=== PATIENT | male | born 1990 | race Caucasian/White ===

== ENCOUNTER 2017-11-28 19:47 | Inpatient (IN) | payer OTHER, SELFPAY ==
[2017-11-28] MEDS ORDERED: Ondansetron HCl/PF 4 MG/2 ML Vial ONE (19:57)
[2017-11-28 20:26] LABS: #Basophils 0.1 thou/uL (0.0-0.2); #Eosinphils 0.4 thou/uL (0.0-0.7); #Lymphocytes 2.1 thou/uL (1.20-3.40); #Monocytes 0.7 thou/uL (0.11-0.59); #Neutrophils 3.4 thou/uL (1.40-6.50); %Basophils 1.7 % (0.0-1.0); %Eosinophils 5.3 % (0.0-10.0); %Lymphocytes 30.6 % (21.0-51.0); %Monocytes 11.1 % (0.0-10.0); %Neutrophils 51.3 % (42.0-75.0); Hemoglobin 13.2 g/dL (14.0-18.0); Mean Corpuscular HGB CONC 36.2 g/dL (32.0-36.0); Mean Corpuscular Hemoglobin 30.7 pg (27.0-31.0); Mean Corpuscular Volume 84.8 fL (78.0-98.0); Mean Platelet Volume 9.4 fL (7.4-10.4); Platelet Count 231 thou/uL (130-400); RBC Distribution Width 9.5 % (11.5-14.5); Red Blood Cell (RBC) Count 4.31 mill/uL (4.70-6.10); White Blood Cell (WBC) Count 6.7 thou/uL (4.8-10.8)
[2017-11-28 20:39] LABS: ALT (SGPT) 20 U/L (8-55); AST (SGOT) 19 U/L (5-34); Albumin 4.4 g/dL (3.5-5.0); Alkaline Phosphatase 92 U/L (40-150); Anion Gap 14 mmol/L (10-20); BUN (Urea Nitrogen) 7 mg/dL (8.9-20.6); Bilirubin, Total 0.8 mg/dL (0.2-1.2); Calc. Creatinine Clearance 0 mL/min (70-130); Calcium 9.4 mg/dL (7.8-10.44); Carbon Dioxide 21 mmol/L (22-29); Chloride 88 mmol/L (98-107); Estimated GFR-MDRD Greater than 90; Globulin 2.9 g/dL (2.4-3.5); Glucose 125 mg/dL (70-105); Potassium 3.3 mmol/L (3.5-5.1); Protein, Total 7.3 g/dL (6.0-8.3); Sodium 120 mmol/L (136-145); Troponin I Less than 0.010 ng/mL (< 0.028)
--- NOTE | 2017-11-28 20:58 | RAD ---
CHEST TWO VIEWS: HISTORY: Dyspnea. TECHNIQUE: PA and lateral views of the chest are obtained. FINDINGS: The lungs are well aerated. No evidence of active intrathoracic disease is seen. No evidence of eff usions, pneumonia, or pneumothorax is seen. IMPRESSION: Normal two views chest. POS: [facility]
[2017-11-28 22:09] LABS: Osmolality, Serum 249 mOsm/kg (280-295)
--- NOTE | 2017-11-28 22:09 | CT ---
CT BRAIN WITHOUT CONTRAST: HISTORY: Headache. TECHNIQUE: Noncontrast enhanced CT images of the brain obtained. FINDINGS: No evidence of intracranial masses, hemorrhages, strokes, or contusions seen. The ventricles are of normal size. IMPRESSION: Normal CT brain. POS: [facility]
[2017-11-28 22:31] LABS: Bilirubin Negative (Negative); Blood, Urine Negative (Negative); Clarity Clear (Clear); Glucose, Urine (Dipstick) Negative (Negative); Leukocyte Negative (Negative); Nitrite Negative (Negative); Protein, Urine (Dipstick) Negative (Neg-Trace); Urobilinogen 0.2 mg/dL (0.2-1.0)
[2017-11-28 22:33] LABS: Specific Gravity, Urine 1.002 (1.002-1.036)
[2017-11-28 23:34] VITALS: BMI 22.4
[2017-11-29 00:11] LABS: Anion Gap 14 mmol/L (10-20); BUN (Urea Nitrogen) 6 mg/dL (8.9-20.6); Calc. Creatinine Clearance 118 mL/min (70-130); Calcium 9.2 mg/dL (7.8-10.44); Carbon Dioxide 22 mmol/L (22-29); Chloride 95 mmol/L (98-107); Estimated GFR-MDRD Greater than 90; Glucose 112 mg/dL (70-105); Potassium 3.7 mmol/L (3.5-5.1); Sodium 127 mmol/L (136-145)
[2017-11-29 00:29] LABS: Amphetamine Detected (NotDetected); Barbiturates Screen Not Detected (NotDetected); Benzodiazepine Screen Not Detected (NotDetected); Cocaine Metabolite Screen Detected (NotDetected); Medtox Control Line Valid? VALID (VALID); Medtox Reader # READER 4; Methadone Not Detected (NotDetected); Methamphetamine Not Detected (NotDetected); Opiate Screen Not Detected (NotDetected); Oxycodone Screen Not Detected (NotDetected); Phencyclidine (PCP) Not Detected (NotDetected); THC/Cannabinoid Screen Detected (NotDetected); Tricyclic Screen Not Detected (NotDetected)
[2017-11-29] MEDS ORDERED: Acetaminophen 325 MG TAB PO PRN (00:59)
[2017-11-29] MEDS ORDERED: Ondansetron HCl/PF 4 MG/2 ML Vial IVP PRN (00:59)
[2017-11-29] MEDS ORDERED: Dextrose 5% in Water 1,000 ML IV SCH (01:00)
[2017-11-29] MEDS ORDERED: Sodium Chloride 0.45% 1,000 ML IV SCH (01:15)
[2017-11-29 06:46] LABS: Anion Gap 15 mmol/L (10-20); BUN (Urea Nitrogen) 5 mg/dL (8.9-20.6); Calc. Creatinine Clearance 115 mL/min (70-130); Calcium 9.8 mg/dL (7.8-10.44); Carbon Dioxide 21 mmol/L (22-29); Chloride 101 mmol/L (98-107); Estimated GFR-MDRD Greater than 90; Glucose 95 mg/dL (70-105); Potassium 3.9 mmol/L (3.5-5.1); Sodium 133 mmol/L (136-145)
[2017-11-29 06:57] LABS: #Eosinphils 0.5 thou/uL (0.0-0.7); #Lymphocytes 2.2 thou/uL (1.20-3.40); #Neutrophils 3.9 thou/uL (1.40-6.50); %Basophils 0.3 % (0.0-1.0); %Eosinophils 6.2 % (0.0-10.0); %Lymphocytes 29.4 % (21.0-51.0); %Monocytes 12.4 % (0.0-10.0); %Neutrophils 51.6 % (42.0-75.0); Hemoglobin 14.4 g/dL (14.0-18.0); Mean Corpuscular HGB CONC 33.3 g/dL (32.0-36.0); Mean Corpuscular Hemoglobin 29.9 pg (27.0-31.0); Mean Platelet Volume 8.4 fL (7.4-10.4); Platelet Count 259 thou/uL (130-400); Red Blood Cell (RBC) Count 4.82 mill/uL (4.70-6.10); White Blood Cell (WBC) Count 7.6 thou/uL (4.8-10.8)
[2017-11-29] MEDS ORDERED: Enoxaparin Sodium 40 MG/0.4 ML SYRINGE SC SCH (09:00)
[2017-11-29 09:28] LABS: Anion Gap 11 mmol/L (10-20); BUN (Urea Nitrogen) 5 mg/dL (8.9-20.6); Calc. Creatinine Clearance 117 mL/min (70-130); Calcium 9.4 mg/dL (7.8-10.44); Carbon Dioxide 23 mmol/L (22-29); Chloride 104 mmol/L (98-107); Estimated GFR-MDRD Greater than 90; Glucose 95 mg/dL (70-105); Potassium 4.1 mmol/L (3.5-5.1); Sodium 134 mmol/L (136-145)
--- NOTE | 2017-11-29 09:37 | CON ---
DATE OF CONSULTATION: 11/29/2017 RENAL MEDICINE HISTORY OF PRESENT ILLNESS: Mr. Delatorre is a 27-year-old white male who was admitted for hyponatrem ia - acute. Initially, he came today complaining of shortness of breath. On further evaluation, no evidence of CHI was found with this patient. He was found to have an incidental finding of serum sod ium of 120 on admission. He was placed on a simple free water restriction and the serum sodium spont aneously started correcting to 127. The issue was whether this patient may be correcting his hyponat remia quite rapidly. My bias is that this patient most likely has acute hyponatremia and I am not co ncerned about rapid correction per se. I do not think he has history of chronic hyponatremia. The p atient was telling me that a few days prior to admission he has been imbibing more free water thinkin g he was dehydrated. He also has significant alcohol intake. He tells me he takes about a six pack 3 times a week minimum. This may also have contributed to the hyponatremia. He is also on an NSAID, which he takes according to the patient 2 times a week which could also contribute to the hyponatrem ia. This morning, he is feeling better. His serum sodium is much improved to 133. He is complainin g of being hungry. REVIEW OF SYSTEMS: No chest pain, no shortness of breath, no nausea, no vomiting, no diarrhea, no co nstipation, no productive cough, no fever or chills, no diarrhea. Appetite is fair. Energy level is fair. No hematochezia, no melena, no dysuria, no urinary frequency. MEDICATIONS: Currently on half normal saline 100 mL per hour, Lovenox 40 mg subcu daily and Tylenol p.r.n. PAST MEDICAL HISTORY: No significant medical problems. PAST SURGICAL HISTORY: No significant surgeries. ALLERGIES: None. TRAUMA: None. IMMUNIZATIONS: Not up to date. HOSPITALIZATIONS: Please see past medical history. SOCIAL HISTORY: Patient is , 4 children, lives in [place]. He works as a part-time freight loader. S mokes 1 pack a day for the last 8 years. Alcohol, six pack 3 times a week. P.r.n. intake of NSAIDs. No IV drug abuse. No blood transfusion. FAMILY HISTORY: No family history of ESRD. PHYSICAL EXAMINATION: VITAL SIGNS: Blood pressure 135/95, heart rate 95, respiratory rate 20, temperature 98.7, pulse ox 9 7% room air. GENERAL: Awake, alert, comfortable, not in distress. SKIN: Adequate turgor. HEENT: He has pinkish conjunctivae, anicteric sclerae. NECK: No neck mass, no carotid bruits, no JVD. CHEST: No deformities. LUNGS: Clear breath sounds, no wheezing, no crackles. HEART: Normal sinus rhythm. No murmur, no gallops, no rubs. ABDOMEN: Globular, soft, nontender, no masses. EXTREMITIES: No edema, no deformities. NEUROLOGIC: Awake and oriented to 3 spheres. Moving all extremities. No tremors, no asterixis, no ataxia. IMAGING DATA: 1. Chest x-ray on 11/28/[address] scan of the brain, no acute intracranial abnormality. LABORATORY DATA: On 11/29/2017; sodium 133, potassium 3.9, chloride 101, carbon dioxide 21, BUN 5, c reatinine 0.86, glucose 95, calcium 9.8. On 11/28/2017; 23:44 - serum sodium 127. On 11/28/2017, 20:05, serum sodium 120. Urinalysis; specific gravity, 10.02, no red cells, no white cells, no protein. ASSESSMENT AND PLAN: Hyponatremia - consider a primary polydipsia. The patient was advised on a kelly e water intake. We will try to control his intake of water. In addition, I counseled him on the alc ohol intake as well on the NSAID intake. Please note his serum sodium is much dramatically improved - this happened spontaneously. The hyponatremia is most likely acute rather than chronic in nature. Agree with current management. Okay for discharge any time.
[2017-11-29 11:47] VITALS: BP 130/64; TEMP 98.2
--- NOTE | 2017-11-29 13:33 | SS ---
DATE OF ADMISSION: 11/28/2017 DATE OF DISCHARGE: 11/29/2017 PRIMARY CARE PHYSICIAN: Jared Bartlett. CHIEF COMPLAINT: Lightheadedness, generalized weakness with some shortness of breath and nausea of 1 day duration. HISTORY OF PRESENT ILLNESS: The patient is a 27-year-old male who presented to the emergency room wi th intermittent shortness of breath along with coughing, lightheadedness and dizziness. He denies an y chest pain, palpitations or focal neurologic deficit. He had 1 episode of vomiting after which he felt better. He has been drinking a lot of water, as well as alcohol lately. He also smokes on a da lucio basis. No abdominal pain, diarrhea or constipation reported. He had mild cough without any sign ificant production. In the emergency room, his initial vital signs showed temperature 97.9, respirations 17, pulse rate o f 88 with a blood pressure 145/91 with O2 saturation 99% on room air. His workup in the emergency ro om yesterday evening around 9:00 p.m. showed sodium of 120 with serum osmolarity of 249, potassium 3. 3, bicarbonate of 21, chloride of 88 with creatinine of 0.8. He received IV fluids. His urine drug screen was positive for amphetamines, cocaine, and cannabinoid. His urine osmolality was 49 with uri ne sodium less than 20. He received 1 liter in the emergency room and was transferred to this [facility] for hospital admission. PAST MEDICAL HISTORY: Reviewed with the patient and none. PAST SURGICAL HISTORY: Reviewed with the patient and none. ALLERGIES: No known drug allergies. CURRENT MEDICATIONS: Reviewed with the patient and none. SOCIAL HISTORY: Smokes up to 1 pack a day. He drinks alcohol heavily over the weekends. He also ab uses cannabis. FAMILY HISTORY: Negative for heart disease. REVIEW OF SYSTEMS: The following complete review of systems was negative, unless otherwise mentioned in the HPI or below: Constitutional: Weight loss or gain, ability to conduct usual activities. Skin: Rash, itching. Eyes: Double vision, pain. ENT/Mouth: Nose bleeding, neck stiffness, pain, tenderness. Cardiovascular: Palpitations, dyspnea on exertion, orthopnea. Respiratory: Shortness of breath, wheezing, cough, hemoptysis, fever or night sweats. Gastrointestinal: Poor appetite, abdominal pain, heartburn, nausea, vomiting, constipation, or diarrhea. Genitourinary: Urgency, frequency, dysuria, nocturia. Musculoskeletal: Pain, swelling. Neurologic/Psychiatric: Anxiety, depression. Allergy/Immunologic: Skin rash, bleeding tendency. PHYSICAL EXAMINATION: VITAL SIGNS: As discussed above. GENERAL: A 27-year-old male in no apparent distress, feels much better. HEENT: Head atraumatic, normocephalic. Sclerae are anicteric. Moist mucous membrane, no oral lesio n. NECK: Supple, no JVD, no carotid bruit. LUNGS: Clear to auscultation bilaterally, no wheezing, rales or rhonchi. HEART: S1, S2 present. Regular rate and rhythm. No murmur, rubs, or gallops appreciated. ABDOMEN: Soft, nontender, bowel sounds present. EXTREMITIES: No edema or calf tenderness. NEURO: Grossly nonfocal. Power was 5/5 in all extremities. Cranial nerves II-XII are normal on exa mination. Sensation to touch was normal bilaterally. PSYCHIATRIC: Alert, awake, oriented x3. SKIN: Warm and dry. LYMPH NODES: No palpable lymph nodes in the neck. PERIPHERAL VASCULAR: Radial pulses palpable bilaterally. MUSCULOSKELETAL: No joint swelling or tenderness. LABORATORY FINDINGS: Sodium in the ER around 8:00 p.m. was 120, last night was 127. Around 5:00 a.m . was 133, around 9:00 a.m. was 134. Chest x-ray by my review was negative for infiltrate. CT scan of the brain by my review was negative for acute findings. EKG by my review showed sinus rhythm without significant ST-T wave changes. Tr oponins were negative. His D-dimer was negative. IMPRESSION: 1. Hypotonic hyponatremia, suspected secondary to primary polydipsia versus beer potomania. The [facility] was evaluated by Nephrology, Dr. Crenshaw. According to Dr. Crenshaw the patient had acute hyponatremia t hat improved significantly. Dr. Crenshaw has cleared the patient for discharge. He was also advised to d iscontinue alcohol and nonsteroidal anti-inflammatory drugs. 2. Polysubstance abuse. The patient was extensively counseled to quit drug use. He was also advise d to discontinue tobacco use. 3. Hypokalemia, corrected. 4. Metabolic acidosis, resolved. 5. Nausea, vomiting, lightheadedness secondary to hyponatremia, resolved. The patient will be discharged home per Nephrology recommendation. He was advised to follow up with primary care physician at [facility] later this week. He was also advised to call Dr. Crenshaw's office for appointment. He was advised to get a repeat sodium checked later this week. Plan of care was discussed with the patient and the family at the bedside. They stated understanding .
== END 2017-11-29 12:54 | disposition home or self-care (01) | DRG 641 ==
LOC: SCSER 19:47 → EDBD 19:47 → 2SW 22:20
PROVIDERS: ADMIT Hospitalist; ATTEND Hospitalist
DX: R63.1 Polydipsia (principal); E87.1 Hypo-osmolality and hyponatremia; E87.2 Acidosis; F17.210 Nicotine dependence, cigarettes, uncomplicated; F19.10 Other psychoactive substance abuse, uncomplicated; E87.6 Hypokalemia
CPT/HCPCS: 36415; 70450; 71046; 80048; 80053; 80306; 80307; 81003; 83930; 83935; 84300; 84484; 85025; 85379; 93005; 96361; 96374; 99406; J1650; J2405

== ENCOUNTER 2020-02-03 04:55 | Inpatient (IN) | payer SELFPAY ==
[2020-02-03] MEDS ORDERED: Sucralfate 1 GM/10 ML UDCUP ONE (05:10)
[2020-02-03 05:24] LABS: #Basophils 0.1 thou/uL (0.0-0.2); #Eosinphils 0.3 thou/uL (0.0-0.7); #Lymphocytes 1.6 thou/uL (1.20-3.40); #Monocytes 1.3 thou/uL (0.11-0.59); #Neutrophils 11.8 thou/uL (1.40-6.50); %Basophils 0.4 % (0.0-1.0); %Eosinophils 2.2 % (0.0-10.0); %Lymphocytes 10.6 % (21.0-51.0); %Monocytes 8.4 % (0.0-10.0); %Neutrophils 78.4 % (42.0-75.0); Hemoglobin 17.1 g/dL (14.0-18.0); Mean Corpuscular HGB CONC 33.5 g/dL (32.0-36.0); Mean Corpuscular Hemoglobin 33.5 pg (27.0-31.0); Mean Platelet Volume 8.7 fL (7.4-10.4); Platelet Count 207 thou/uL (130-400); RBC Distribution Width 12.6 % (11.5-14.5); Red Blood Cell (RBC) Count 5.12 mill/uL (4.70-6.10)
[2020-02-03 05:44] LABS: ALT (SGPT) 17 U/L (8-55); AST (SGOT) 22 U/L (5-34); Albumin 4.2 g/dL (3.5-5.0); Alkaline Phosphatase 146 U/L (40-110); Anion Gap 17 mmol/L (10-20); BUN (Urea Nitrogen) 5 mg/dL (8.9-20.6); Bilirubin, Total 1.2 mg/dL (0.2-1.2); Calc. Creatinine Clearance 0 mL/min (70-130); Calcium 10.2 mg/dL (7.8-10.44); Carbon Dioxide 24 mmol/L (22-29); Chloride 96 mmol/L (98-107); Estimated GFR-MDRD Greater than 90; Globulin 3.7 g/dL (2.4-3.5); Glucose 132 mg/dL (70-105); Lipase 548 U/L (8-78); Potassium 3.5 mmol/L (3.5-5.1); Protein, Total 7.9 g/dL (6.0-8.3); Sodium 133 mmol/L (136-145)
--- NOTE | 2020-02-03 07:28 | CT ---
PRELIMINARY REPORT/DIRECT RADIOLOGY/EMERGENCY AFTER HOURS PROCEDURE: EXAM: CT Abdomen and Pelvis with Intravenous Contrast CLINICAL HISTORY: EPIGASTRIC PAIN TECHNIQUE: Axial computed tomography images of the abdomen and pelvis with intravenous contrast. CONTRAST: With; ISOVUE 370,100mL COMPARISON: None provided. FINDINGS: LUNG BASES: No basilar airspace consolidation or pleural effusion. LIVER: Diffuse hepatic steatosis. GALLBLADDER AND BILE DUCTS: Marked mucosal thickening of the gallbladder with mild pericholecystic fl uid. Findings may be reactive to adjacent inflammation, however, further evaluation with right upper quadrant ultrasound is recommended. PANCREAS: Enlargement of the pancreatic head/uncinate process with mild adjacent fat stranding. SPLEEN: Unremarkable. ADRENAL GLANDS: Unremarkable. KIDNEYS, URETERS, AND BLADDER: Unremarkable. No hydronephrosis or nephrolithiasis. No ureteral or jacques dder calculi. STOMACH AND BOWEL: There is a small bowel to small bowel intussusception in the left upper abdomen wh ich is likely of no clinical significance. The 9 cm length of bowel proximally is distended with fluid measuring up to 2.7 cm. Mild mural thickening of the descending and sigmoid colon which is like ly due to under distention, however a mild colitis cannot be excluded. No bowel obstruction. APPENDIX: No CT evidence for appendicitis. PERITONEUM: No free fluid. No free air. LYMPH NODES: No lymphadenopathy. REPRODUCTIVE: Unremarkable as visualized. VASCULATURE: No aortic aneurysm. BONES: No fracture or suspicious osseous abnormality. ABDOMINAL WALL AND SOFT TISSUES: Unremarkable. IMPRESSION: Marked mucosal thickening of the gallbladder with mild pericholecystic fluid. Findings may be reactive to adjacent inflammation, however, further evaluation with right upper quadrant ultrasound is recommended. Enlargement of the pancreatic head/uncinate process with mild adjacent fa t stranding. Findings may represent acute interstitial edematous pancreatitis in the appropriate clinical setting and correlation with pancreatic enzymes is recommended for further evaluation. The re is a small bowel to small bowel intussusception in the left upper abdomen which is likely of no clinical significance. Mild mural thickening of the descending and sigmoid colon which is likely due to under distention, however a mild colitis cannot be excluded. ELECTRONICALLY SIGNED BY: Katiana Mabry MD Feb 03, 2020 6:45:04 AM [facility] FINAL REPORT ABDOMEN AND PELVIC CT SCAN WITH IV CONTRAST: EMERGENCY AFTER HOURS EXAM: TIME: 6:19 AM. DATE: 02/03/2020. There is some gallbladder wall thickening and enhancement, nonspecific concerning for the possibility of acute cholecystitis. Small bowel intussusception involving the jejunum with some minimal proximal dilatation, possibly rick y minimal proximal obstruction. Somewhat underdistended left colon. No other acute process. This report is in agreement with the preliminary report. Transcribed Date/Time: 02/03/2020 7:45 AM
[2020-02-03] MEDS ORDERED: Sodium Chloride 0.9% 1,000 ML IV SCH ×2 (08:15→08:45)
[2020-02-03] MEDS ORDERED: Sodium Chloride 0.9% (PF) 10 ML VIAL FS PRN (08:30)
[2020-02-03] MEDS ORDERED: Diazepam 5 MG TAB PO PRN (08:33)
[2020-02-03 08:36] LABS: Magnesium 1.6 mg/dL (1.6-2.6); Phosphorus 3.6 mg/dL (2.3-4.7)
[2020-02-03] MEDS ORDERED: Lorazepam 1 MG TAB PO PRN (08:37)
[2020-02-03] MEDS ORDERED: Calcium Carbonate 500 MG ChewTAB PO PRN (08:40)
[2020-02-03] MEDS ORDERED: Mag-Al 1200 mg/1200 mg/30 ML UDCUP PO PRN (08:40)
[2020-02-03] MEDS ORDERED: cloNIDine 0.1 MG TAB PO PRN (08:42)
[2020-02-03] MEDS ORDERED: Magnesium Sulfate 4 GM in Sodium Chloride 0.9% 250 ML 250 ML IVPB SCH (08:45)
[2020-02-03] MEDS ORDERED: Diazepam 5 MG TAB PO SCH (08:45)
[2020-02-03] MEDS ORDERED: Morphine 2 MG/ML VIAL SLOW IVP PRN (08:45)
[2020-02-03] MEDS ORDERED: Thiamine HCl 200 MG/2 ML VIAL IM SCH (08:45)
--- NOTE | 2020-02-03 08:57 | PDOC.HHP ---
Hospitalist HPI - History of Present Illness History of Present Illness: ADMISSION DATE: 02/03/2020 TIME OF ASSESSMENT: 0800 PRIMARY CARE PHYSICIAN: None, city call CHIEF COMPLAINT: Abdominal pain HPI: Patient is a 29-year-old male with no known past medical history. He does have a history of heavy alcohol use. Patient presents to the ER for abdominal pain that has been persisting for 3 days. He states that the pain starts in the center of his chest and then radiates to the left and then his mid stomach. He has tried children's Tylenol at home to relieve the symptoms but that did not help. He describes it as a sharp pain and the only relief comes when he lies in the position. Upon arrival to the ER he felt very bloated but the Carafate that they administered in the ER helped this. He states that he has had a very mucus-like diarrhea that began today x2 stools. Prior to this he was constipated for 4 days. He woke up diaphoretic this morning prior to calling EMS. He states he has had no known fevers. He endorsed shortness of breath but stated it was caused by not wanting to take a deep breath with the pain. Denies nausea, vomiting, contact with sick persons, hematochezia, melena. ED COURSE: Vital signs: Blood pressure 146/116, pulse 105, respiratory 16, O2 saturation 98% on room air, temperature 98.4 oral In the ER the patient had lab work completed, EKG, and abdomen and pelvis CT with contrast. He was administered 1 L normal saline as a bolus, IV fluids, and Carafate 1 g oral. PAST MEDICAL HISTORY: None PAST SURGICAL HISTORY: None SOCIAL HISTORY: Patient currently lives alone, his and 3 children are staying with her parents. Patient states he used to be a heavy drinker and would have at least 15 beers a day along with 2 shots. He states over the past 2 weeks he has decreased his alcohol intake to 2 beers a day. He is a pack per day smoker. Patient was a long-term heavy marijuana user but states he has not used any in a year. FAMILY HISTORY: Mother had pancreatic cancer and lung cancer. Mother and father both had diabetes and hypertension. ALLERGIES: No known drug allergies CURRENT MEDICATIONS: No home medications Hospitalist ROS - Review of Systems Constitutional: reports: sweats Gastrointestinal: reports: abdominal pain, diarrhea, constipation All other systems reviewed; all pertinent +/- noted in HPI/Subj - Exam General Appearance: NAD, awake alert Neck: supple Heart: RRR, no murmur, no gallops, no rubs, normal peripheral pulses Respiratory: CTAB, no wheezes, no rales, no ronchi, normal chest expansion Gastrointestinal: soft, tender to palpation, distended Gastrointestinal - other findings: Negative Hahn sign Extremities: no edema Musculoskeletal: normal tone, normal strength Psychiatric: normal affect, normal behavior, A&O x 3 Hospitalist Results - Labs Result Diagrams: 02/03/20 05:12 02/03/20 05:12 Lab results: WBC 15.0 thou/uL (4.8-10.8) H 02/03/20 05:12 Hgb 17.1 g/dL (14.0-18.0) 02/03/20 05:12 Hct 51.2 % (42.0-52.0) 02/03/20 05:12 MCV 100.0 fL (78.0-98.0) H 02/03/20 05:12 Plt Count 207 thou/uL (130-400) 02/03/20 05:12 Neutrophils % 78.4 % (42.0-75.0) H 02/03/20 05:12 Sodium 133 mmol/L (136-145) L 02/03/20 05:12 Potassium 3.5 mmol/L (3.5-5.1) 02/03/20 05:12 Chloride 96 mmol/L (98-107) L 02/03/20 05:12 Carbon Dioxide 24 mmol/L (22-29) 02/03/20 05:12 BUN 5 mg/dL (8.9-20.6) L 02/03/20 05:12 Creatinine 0.86 mg/dL (0.7-1.3) 02/03/20 05:12 Glucose 132 mg/dL (70-105) H 02/03/20 05:12 Calcium 10.2 mg/dL (7.8-10.44) 02/03/20 05:12 Total Bilirubin 1.2 mg/dL (0.2-1.2) 02/03/20 05:12 AST 22 U/L (5-34) 02/03/20 05:12 ALT 17 U/L (8-55) 02/03/20 05:12 Alkaline Phosphatase 146 U/L (40-110) H 02/03/20 05:12 Serum Total Protein 7.9 g/dL (6.0-8.3) 02/03/20 05:12 Albumin 4.2 g/dL (3.5-5.0) 02/03/20 05:12 Lipase 548 U/L (8-78) H 02/03/20 05:12 - EKG Interpretation EKG: ST 131 Hospitalist H&P A/P - Plan Plan: #Acute pancreatitis Lipase at 548, enlargement of the pancreatic head seen on CT Aggressive IV hydration As needed analgesics available FLP in a.m. #Abdominal pain CT showed mucosal thickening gallbladderright upper quadrant ultrasound ordered Remain n.p.o. except ice chips and medications IV PPI IV antibiotics ordered Awaiting stool for stool studies #Hypertensive with no history of hypertension Continue to monitor, possibly due to pain or withdrawals #Alcohol abuse ASE protocolAtivan available for withdrawal symptoms Metoprolol and clonidine ordered for hypertension and to help with alcohol withdrawal symptoms #Tobacco use Nicotine patch available Smoking cessation education SCDs in place for VTE prophylaxis Surrogate decision-maker is his father, Steven Delatorre CODE STATUS: Full Patient and care have been discussed with Dr. Alicia who agrees with above plan of care
[2020-02-03] MEDS: Folic Acid 1 MG TAB PO SCH (09:41)
[2020-02-03] MEDS: Saccharomyces boulardii 250 MG CAP PO SCH (09:41)
[2020-02-03] MEDS: Multivitamin W/ Minerals 1 TAB PO SCH (09:41)
[2020-02-03] MEDS: cloNIDine 0.1 MG TAB PO SCH ×2 (09:41→20:25)
[2020-02-03] MEDS: D5 0.9% NS w/ 20 mEq KCl 1,000 ML IV SCH ×2 (09:41→13:31)
[2020-02-03] MEDS: Pantoprazole 40 MG VIAL IVP SCH ×2 (09:41→20:26)
[2020-02-03] MEDS: metroNIDAZOLE 500 MG in Premix Bag 1 BAG IVPB SCH ×2 (09:41→17:18)
[2020-02-03] MEDS: Cyanocobalamin (Vitamin B-12) 1,000 MCG TAB PO SCH (09:41)
[2020-02-03] MEDS: Nicotine 14 MG PATCH TD SCH (09:42)
[2020-02-03] MEDS: Metoprolol Tartrate 25 MG TAB PO SCH ×2 (09:42→20:25)
[2020-02-03] MEDS ORDERED: Iopamidol-370 76% 500 ML 1 ML ONE (09:48)
[2020-02-03 11:23] VITALS: BMI 24.5
[2020-02-03 11:38] LABS: SARS-CoV-2 MS2 Positive; SARS-CoV-2 N Gene Negative; SARS-CoV-2 S Gene Negative; SARS-CoV-2 by NAA Not Detected (NotDetected); SARS-CoV-2 orf1ab Negative
--- NOTE | 2020-02-03 11:44 | ULT ---
Exam: Right upper quadrant ultrasound: HISTORY: Epigastric pain acute pancreatitis COMPARISON: CT, 02/03/2020 FINDINGS: Visualized liver:Very markedly abnormal heterogeneous liver echogenicity evidence for nonspecific hep atic parenchymal process but probably some degree of fatty infiltration and areas of fatty sparing. Gallbladder:Thick walled appearing gallbladder without gallstones with a negative Hahn's sign. Prom inent phrygian cap. Common bile duct:0.7 cm minimally dilated. Minimally poorly defined slightly sonolucent pancreas and peripancreatic region concerning for acute pancreatitis, as seen on prior CT. No evidence for abscess or abnormal fluid collection in the right upper quadrant. IMPRESSION: No evidence for cholelithiasis. Minimal gallbladder wall thickening with a phrygian cap with a negati ve Hahn's sign. Very heterogeneous liver echogenicity concerning for areas of fatty change and fatty sparing. Borderline dilated common bile duct.
[2020-02-04] MEDS: D5 0.9% NS w/ 20 mEq KCl 1,000 ML IV SCH ×3 (01:20→08:36)
[2020-02-04] MEDS: metroNIDAZOLE 500 MG in Premix Bag 1 BAG IVPB SCH ×2 (01:22→08:33)
[2020-02-04] MEDS ORDERED: Diazepam 5 MG TAB PO PRN (04:00)
[2020-02-04 06:40] LABS: #Eosinphils 0.5 thou/uL (0.0-0.7); #Lymphocytes 1.8 thou/uL (1.20-3.40); #Monocytes 0.7 thou/uL (0.11-0.59); #Neutrophils 3.8 thou/uL (1.40-6.50); %Basophils 0.7 % (0.0-1.0); %Eosinophils 7.2 % (0.0-10.0); %Lymphocytes 26.8 % (21.0-51.0); %Monocytes 9.6 % (0.0-10.0); %Neutrophils 55.6 % (42.0-75.0); Hemoglobin 13.2 g/dL (14.0-18.0); Mean Corpuscular HGB CONC 35.1 g/dL (32.0-36.0); Mean Corpuscular Hemoglobin 35.7 pg (27.0-31.0); Mean Platelet Volume 8.6 fL (7.4-10.4); Platelet Count 158 thou/uL (130-400); RBC Distribution Width 12.3 % (11.5-14.5); White Blood Cell (WBC) Count 6.8 thou/uL (4.8-10.8)
[2020-02-04 06:48] LABS: Cardiac Risk 2.7 (Less than 4.5); Magnesium 2.3 mg/dL (1.6-2.6)
[2020-02-04 06:51] LABS: Phosphorus 2.5 mg/dL (2.3-4.7)
[2020-02-04 06:53] LABS: ALT (SGPT) 8 U/L (8-55); AST (SGOT) 14 U/L (5-34); Albumin 3.2 g/dL (3.5-5.0); Alkaline Phosphatase 93 U/L (40-110); Anion Gap 10 mmol/L (10-20); BUN (Urea Nitrogen) Less than 4 mg/dL (8.9-20.6); Bilirubin, Total 0.6 mg/dL (0.2-1.2); CRP (Inflammatory) 5.34 mg/dL (= or < 0.5); Calc. Creatinine Clearance 141 mL/min (70-130); Calcium 8.3 mg/dL (7.8-10.44); Carbon Dioxide 24 mmol/L (22-29); Chloride 108 mmol/L (98-107); Estimated GFR-MDRD Greater than 90; Globulin 2.7 g/dL (2.4-3.5); Glucose 124 mg/dL (70-105); Protein, Total 5.9 g/dL (6.0-8.3); Sodium 138 mmol/L (136-145)
[2020-02-04] MEDS: cloNIDine 0.1 MG TAB PO SCH (08:33)
[2020-02-04] MEDS: Nicotine 14 MG PATCH TD SCH (08:33)
[2020-02-04] MEDS: Saccharomyces boulardii 250 MG CAP PO SCH (08:34)
[2020-02-04] MEDS: Pantoprazole 40 MG VIAL IVP SCH (08:34)
[2020-02-04] MEDS: Folic Acid 1 MG TAB PO SCH (08:34)
[2020-02-04] MEDS: Metoprolol Tartrate 25 MG TAB PO SCH (08:34)
[2020-02-04] MEDS: Multivitamin W/ Minerals 1 TAB PO SCH (08:34)
[2020-02-04] MEDS: Cyanocobalamin (Vitamin B-12) 1,000 MCG TAB PO SCH (08:34)
[2020-02-04] MEDS ORDERED: Thiamine 100 MG TAB PO SCH (09:00)
[2020-02-04] MEDS ORDERED: Magnesium Oxide 400 MG TAB PO SCH (09:00)
--- NOTE | 2020-02-04 11:15 | PDOC.DS.DS ---
Provider - Provider Date of Admission: 02/03/20 06:54 Date of Discharge: 02/04/20 Admitting Provider: Tariq Ash Primary Care Physician: NO PCP PROVIDER Course - Hospital Course Hospital Course: HISTORY OF PRESENT ILLNESS ON ADMISSION Patient is a 29-year-old male with no known past medical history. He does have a history of heavy alcohol use. Patient presents to the ER for abdominal pain that has been persisting for 3 days. He states that the pain starts in the center of his chest and then radiates to the left and then his mid stomach. He has tried children's Tylenol at home to relieve the symptoms but that did not help. He describes it as a sharp pain and the only relief comes when he lies in the position. Upon arrival to the ER he felt very bloated but the Carafate that they administered in the ER helped this. He states that he has had a very mucus-like diarrhea that began today x2 stools. Prior to this he was constipated for 4 days. He woke up diaphoretic this morning prior to calling EMS. He states he has had no known fevers. He endorsed shortness of breath but stated it was caused by not wanting to take a deep breath with the pain. Denies nausea, vomiting, contact with sick persons, hematochezia, melena. Patient currently lives alone, his and 3 children are staying with her parents. Patient states he used to be a heavy drinker and would have at least 15 beers a day along with 2 shots. He states over the past 2 weeks he has decreased his alcohol intake to 2 beers a day. He is a pack per day smoker. Patient was a long-term heavy marijuana user but states he has not used any in a year. In the ER the patient had lab work completed, EKG, and abdomen and pelvis CT with contrast. He was administered 1 L normal saline as a bolus, IV fluids, and Carafate 1 g oral. BRIEF HOSPITAL COURSE Mr. Delatorre is a 29-year-old male with a past medical history of alcohol use, tobacco use who presented to the emergency room with abdominal pain and nausea. Patient's lipase elevated to 548. AST/ALT 14/8. T bili 0.6. A CT scan was done which showed mild gallbladder thickening and incidental small bowel intussusception with nondistended left colon of no clinical significance. Right upper quadrant ultrasound showed minimal gallbladder wall thickening with no evidence of stones. Right upper quadrant ultrasound did show evidence of pancreatitis, but no evidence of abscess or necrosis. Patient was started on Cipro and Flagyl, given aggressive IV fluids, and started on clear liquid diet. Patient's abdominal pain has greatly improved this morning, and patient is now able to tolerate liquids and food without abdominal pain. Stool studies were notable for positive Campylobacter, so we will continue patient on 3-day course of Cipro p.o. On day of discharge patient's white blood cell count was normal at 6.8. His BUNs/CR was also normal. Vital signs were stable and patient rem ained afebrile. Patient medically safe for discharge. Of note patient has a family history of pancreatic cancer in his mother. CT scan and right upper quadrant ultrasound did not show any evidence of pancreatic mass. Patient will need follow-up with primary care provider for continued monitoring. Case discussed with attending physician, Dr. Alicia who is in agreement in assessment/plan and has also determined that patient is medically safe for discharge. Pertinent Studies: CT Abdomen and Pelvis with Intravenous Contrast CLINICAL HISTORY: EPIGASTRIC PAIN TECHNIQUE: Axial computed tomography images of the abdomen and pelvis with intravenous contrast. CONTRAST: With; ISOVUE 370,100mL COMPARISON: None provided. FINDINGS: LUNG BASES: No basilar airspace consolidation or pleural effusion. LIVER: Diffuse hepatic steatosis. GALLBLADDER AND BILE DUCTS: Marked mucosal thickening of the gallbladder with mild pericholecystic fluid. Findings may be reactive to adjacent inflammation, however, further evaluation with right upper quadrant ultrasound is recommended. PANCREAS: Enlargement of the pancreatic head/uncinate process with mild adjacent fat stranding. SPLEEN: Unremarkable. ADRENAL GLANDS: Unremarkable. KIDNEYS, URETERS, AND BLADDER: U nremarkable. No hydronephrosis or nephrolithiasis. No ureteral or bladder calculi. STOMACH AND BOWEL: There is a small bowel to small bowel intussusception in the left upper abdomen which is likely of no clinical significance. The 9 cm length of bowel proximally is distended with fluid measuring up to 2.7 cm. Mild mural thickening of the descending and sigmoid colon which is likely due to under distention, however a mild colitis cannot be excluded. No bowel obstruction. APPENDIX: No CT evidence for appendicitis. PERITONEUM: No free fluid. No free air. LYMPH NODES: No lymphadenopathy. REPRODUCTIVE: Unremarkable as visualized. VASCULATURE: No aortic aneurysm. BONES: No fracture or suspicious osseous abnormality. ABDOMINAL WALL AND SOFT TISSUES: Unremarkable. IMPRESSION: Marked mucosal thickening of the gallbladder with mild pericholecystic fluid. Findings may be reactive to adjacent inflam mation, however, further evaluation with right upper quadrant ultrasound is recommended. Enlargement of the pancreatic head/uncinate process with mild adjacent fat stranding. Findings may represent acute interstitial edematous pancreatitis in the appropriate clinical setting and correlation with pancreatic enzymes is recommended for further evaluation. There is a small bowel to small bowel intussusception in the left upper abdomen which is likely of no clinical significance. Mild mural thickening of the descending and sigmoid colon which is likely due to under distention, however a mild colitis cannot be excluded. ELECTRONICALLY SIGNED BY: Katiana Mabry MD Feb 03, 2020 6:45:04 AM MOTIVATIONAL SPEAKER FINAL REPORT ABDOMEN AND PELVIC CT SCAN WITH IV CONTRAST: EMERGENCY AFTER HOURS EXAM: TIME: 6:19 AM. DATE: 02/03/2020. There is some gallbladder wall thickening and enhancement, nonspecific concerning for the possibility of acute cholecystitis. Small bowel intussusception involving the jejunum with some minimal proximal dilatation, possibly very minimal proximal obstruction. Somewhat underdistended left colon. No other acute process. This report is in agreement with the preliminary report. Transcribed Date/Time: 02/03/2020 7:45 AM Exam: Right upper quadrant ultrasound: HISTORY: Epigastric pain acute pancreatitis COMPARISON: CT, 02/03/2020 FINDINGS: Visualized liver:Very markedly abnormal heterogeneous liver echogenicity evidence for nonspecific hepatic parenchymal process but probably some degree of fatty infiltration and areas of fatty sparing. Gallbladder:Thick walled appearing gallbladder without gallstones with a negative Hahn's sign. Prominent phrygian cap. Common bile duct:0.7 cm minimally dilated. Minimally poorly defined slightly sonolucent pancreas and peripancreatic region concerning for acute pancreatitis, as seen on prior CT. No evidence for abscess or abnormal fluid collection in the right upper quadrant. IMPRESSION: No evidence for cholelithiasis. Minimal gallbladder wall thickening with a phrygian cap with a negative Hahn's sign. Very heterogeneous liver echo genicity concerning for areas of fatty change and fatty sparing. Borderline dilated common bile duct. Resuscitation Status: 02/03/20 08:10 Resuscitation Status Routine Co-Sign Provider: Resuscitation Status: FULL: Full Resuscitation Discussed with: pt - Labs Lab Results: 02/04/20 06:03 02/04/20 06:03 Abnormal Lab Results - Last 48 hrs 02/03/20 05:12: Sodium 133 L, Chloride 96 L, BUN 5 L, Alkaline Phosphatase 146 H, Globulin 3.7 H, Albumin/Globulin Ratio 1.1 L, Lipase 548 H 02/03/20 05:12: WBC 15.0 H, MCV 100.0 H, MCH 33.5 H, Neutrophils % 78.4 H, Lymphocytes % 10.6 L, Neutrophils # 11.8 H, Monocytes # 1.3 H 02/04/20 06:03: Lipase 170 H 02/04/20 06:03: RBC 3.70 L, Hgb 13.2 L, Hct 37.6 L, MCV 102.0 H, MCH 35.7 H, Monocytes # 0.7 H 02/04/20 06:03: Chloride 108 H, BUN Less than 4 L, C-Reactive Protein 5.34 H, Serum Total Protein 5.9 L, Albumin 3.2 L Microbiology - Entire Visit 02/03/20 13:07 Stool Stool Lactoferrin - Final 02/03/20 13:07 Stool Campylobacter Antigen Assay - Final 02/03/20 13:07 Stool Shiga Toxin Test - Final 02/03/20 13:07 Stool Stool Culture - Pending 02/03/20 13:07 Stool Escherichia coli 0157 Culture - Final - Physical Exam Vitals: Vital Signs (12 hours) Temp Pulse Resp BP BP Pulse Ox 02/04/20 08:33 131/76 02/04/20 08:00 97.7 F 81 18 131/76 131/76 99 02/04/20 04:00 97.7 F 71 18 114/60 98 02/04/20 00:00 98.7 F 75 18 119/72 119/72 98 Weight Weight 143 lb 4.807 oz Physical Exam: The patient was seen and examined on the day of discharge. No acute distress, alert and oriented Normocephalic atraumatic Regular rate and rhythm, no murmurs rubs or gallops. Clear to auscultation bilaterally no wheezes rales or rhonchi Abdomen soft nontender with normal active bowel sounds Extremities with no edema, normal peripheral pulses Plan - Discharge Medications Prescriptions: Ciprofloxacin [Cipro] 500 mg PO BID 3 Days #6 tab Home Medications: Medication Instructions Recorded Confirmed Type Ciprofloxacin [Cipro] 500 mg PO BID 3 Days #6 tab 02/04/20 Rx Cyanocobalamin (Vitamin B-12) 1,000 mcg PO DAILY tab 02/04/20 Rx [Vitamin B-12] Folic Acid [Folvite] 1 mg PO DAILY tab 02/04/20 Rx Multivitamin W/ Minerals 1 tab PO DAILY tab 02/04/20 Rx [Theragran M] Nicotine [Nicoderm CQ] 14 mg TD Q24HR patch 02/04/20 Rx Thiamine 100 mg PO DAILY tab 02/04/20 Rx Allergies: No Known Drug Allergies Allergy (Verified 02/03/20 11:27) per pt - Discharge Instructions Discharge Instructions:: You presented with abdominal pain, nausea, and vomitting to the ER. You were found to have pancreatitis, inflammation of your pancreas. Alcohol use can irritate the pancreas and cause pancreatitis. It is important that you limit and ideally eliminate alcohol use. You were also found to have an infectious diarrhea and will need to continue to take antibiotics for three days. You will be sent home with a prescription for Ciprofloxacin 500 mg, which you will take twice daily for three days. Please follow up with your primary care provider in one week. Please present back to the emergency room if you develop any new or worsening symptoms, including fever, worsening abdominal pain, or an inability to keep down food/liquids. Activity:: Activity as Tolerated Nourishment:: Other (Low fat diet) - Follow up Plan Referrals: PROVIDER,NO PCP [Primary Care Provider] - 7 Days Disposition: HOME Quality - Care Measures CORE MEASURES:: N/A
[2020-02-04 14:01] VITALS: BP 128/68; TEMP 97.8
--- NOTE | 2020-02-06 11:56 | PQF ---
CLINICAL DOCUMENTATION CLARIFICATION FORM: Dear : Tariq Milan MD Date / Time: 02/06/2020 Please exercise your independent, professional judgment in responding to the clarification form. Clinical indicators are provided on the bottom of this form for your review Please check appropriate box(es): to clarify the cause of acute pancreatitis Acute Pancreatitis Cause: [ ] Gallstones [ ] Alcohol induced [ ] Idiopathic [ ] Cystic [ ] Infectious [ ] Interstitial [ ] Other diagnosis (Please specify if any) [ ] Unable to determine Physician Signature: Date/Time: For continuity of documentation, please document condition throughout progress notes and discharge summary. Thank You. To be completed by CDI/Coding staff for physician review: Present Clinical Indicators - Signs / Symptoms / Labs Results and Location in Medical Record [x] Elevated Amylase/ Lipase High BUN, hypocalcemia, hyperglycemia Lipase-548 Laboratory on 02/02 [ ] Positive imaging (CT/MRI/US) (Pleural effusions, enlarged pancreas, gall stones in bile duct, common bile duct stone) [x] Severe Epigastric pain (usually RUQ) ED provider report on 02/02 [ ] Pain radiating into back [x] Acute pancreatitis H&P on 02/02 [x] He used to be a heavy drinker and would have atleast 15 beers a day along with 2 shots H&P on 02/02 [x] Discharge instruction: Alcohol use can irritate the pancreas and cause pancreatitis. It is important that you limit & ideally eliminate alcohol use Discharge summary on 02/03 [x] Nausea/Vomiting Discharge summary on 02/03 [ ] Hypotension [ ] Abdominal distention hypoactive BS [ ] Tachypnea [ ] Hepatomegaly Present Risk Factors Results and Location in Medical Record [ ] Chronic Disease [ ] Gallstones [x] Alcohol use/abuse/dependence Alcohol abuse -ED provider report on 02/02 [ ] Recent ERCP Present Treatments Results and Location in Medical Record [x] Sodium chloride 0.9% 1,000ml Medication on 02/02 [x] Folic acid 1mg, multivitamin 1tab, Medication on 02/02, 1123 [x] Morphine 2mg IV Medication on 02/03 [x] Thiamine Medication on 02/02 [ ] ERCP CDS/Returner Signature: [facility] Phone #: Date/Time: 02/06/2020 This is a permanent part of the Medical Record [facility]
== END 2020-02-04 14:48 | disposition home or self-care (01) | DRG 440 ==
LOC: ERS 04:55 → T4-A 06:54
PROVIDERS: ADMIT Internal Medicine; ATTEND Internal Medicine
DX: K85.90 Acute pancreatitis without necrosis or infection, unspecified (principal); F17.210 Nicotine dependence, cigarettes, uncomplicated; I10 Essential (primary) hypertension; F10.10 Alcohol abuse, uncomplicated; Z20.828 Contact with and (suspected) exposure to other viral communicable diseases
CPT/HCPCS: 36415; 74177; 76705; 80053; 80061; 83630; 83690; 83735; 84100; 85025; 86140; 87045; 87046; 87427; 87449; 87635; 93005; C9113; J0744; J3411; J3475; J3480; J3490; J7050; Q9967; U0003